=== PATIENT | female | born 1985 | race Hispanic/Latino ===

== ENCOUNTER 2020-11-27 03:00 | Emergency (ER) | payer MEDICAID ==
[~2020-11-27] VITALS: Ht 160 cm; Wt 90.0 kg
[2020-11-27 04:04] LABS: HEMATOCRIT 41.2 % (37.0-47.0); HEMOGLOBIN 13.6 g/dl (12.0-16.0); IMMATURE GRANULOCYTES 0.1 % (0.0-5.0); MEAN CELL VOLUME 90.2 fL CALC (80.0-100.0); MEAN CORPUSCULAR HGB 29.8 pG CALC (26.0-32.0); NEUT# 5.08 thou/uL (2.00-7.15); RED BLOOD COUNT 4.57 mill/uL (4.20-5.60); RED CELL DISTRI WIDTH 13.3 % (11.5-15.5)
[2020-11-27 05:50] VITALS: BP 118/68
== END 2020-11-27 06:31 | disposition home or self-care (01) ==
LOC: ED 03:00
PROVIDERS: Family Medicine
DX: B34.8 Other viral infections of unspecified site (principal); Z86.16 Personal history of COVID-19; Z98.84 Bariatric surgery status; Z20.822 Contact with and (suspected) exposure to COVID-19

== ENCOUNTER 2022-05-29 09:03 | Emergency (ER) | payer OTHER ==
[~2022-05-29] VITALS: Ht 160 cm; Wt 84.6 kg
[2022-05-29 09:10] VITALS: BP 104/70
[2022-05-29 09:31] VITALS: BP 96/68
[2022-05-29 10:01] VITALS: BP 85/52
[2022-05-29 10:23] VITALS: BP 103/75
[2022-05-29 10:31] VITALS: BP 103/71
[2022-05-29 10:36] VITALS: BP 103/71
[2022-05-29] MEDS ORDERED: CODEINE/GUAIFEN1 SOL PO (10:43)
== END 2022-05-29 10:59 | disposition home or self-care (01) | DRG 153 ==
LOC: ED 09:03
DX: J06.9 Acute upper respiratory infection, unspecified (principal); F41.9 Anxiety disorder, unspecified; Z86.16 Personal history of COVID-19; Z20.822 Contact with and (suspected) exposure to COVID-19